=== PATIENT | female | born 1955 | race Caucasian/White ===

== ENCOUNTER 2018-02-20 08:57 | Inpatient (IN) ==
[2018-02-15 16:23] LABS: Appearance,Urine CLEAR; Bilirubin,Urine NEG (NEG); Color,Urine YELLOW; Glucose,Urine (UA) NEGATIVE (NEG); Leukocyte Esterase,Urine NEG /uL (NEG); Protein,Urine NEG (NEG); Specific Gravity,Urine 1.024 (1.000-1.035); Urine Blood NEG mg/dL (<0.03); Urobilinogen,Urine NEG (NEG)
[2018-02-15 19:05] LABS: Basophils # (Auto) 0 K/mcL (0.0-0.3); Basophils % (Auto) 0.7 % (0.0-2.0); Eosinophils # (Auto) 0.3 K/mcL (0.0-0.7); Eosinophils % (Auto) 6.7 % (0.0-7.0); Granulocytes % (Auto) 56.3 % (38.0-78.0); Lymphocytes # (Auto) 1.3 K/mcL (1.5-4.8); Lymphocytes % (Auto) 28.5 % (15.5-49.0); Mean Corpuscular Hemoglobin 30.3 pg (26.0-34.0); Monocytes # (Auto) 0.3 K/mcL (0.1-0.9); Monocytes % (Auto) 7.8 % (1.0-12.0); Platelet Count 199 K/mcL (140-440); RBC 4.79 M/mcL (4.00-5.20); Red Cell Distribution Width 14.7 % (11.5-14.5)
[2018-02-15 19:55] LABS: Blood Urea Nitrogen 11 mg/dl (6-20)
[~2018-02-20 08:57] MED LIST: 0.9 % SODIUM CHLORIDE 9 ML, KETOROLAC 30 MG, ROPIVACAINE HCL/PF 49.5 ML, EPINEPHrine 0.... IJ SCH; ACETAMINOPHEN 500 MG TABLET PO SCH; CELECOXIB 200 MG CAPSULE PO SCH; PREGABALIN 75 MG CAPSULE PO SCH; ceFAZolin 1 GM VIAL IV SCH
[2018-02-20] MEDS ORDERED: MIDAZOLAM 5 MG/5 ML VIAL IV ONE (13:15)
[2018-02-20] MEDS ORDERED: ePHEDrine 50 MG/ML AMPUL IV ONE (13:15)
[2018-02-20] MEDS ORDERED: PROPOFOL 200 MG/20 ML VIAL IV ONE (13:15)
[2018-02-20] MEDS ORDERED: LIDOCAINE HCL/PF 100 MG/5 ML SYRINGE IV ONE (13:15)
[2018-02-20] MEDS ORDERED: TRANEXAMIC ACID 1,000 MG/10 ML VIAL IV ONE (13:15)
[2018-02-20] MEDS ORDERED: DEXAMETHASONE 10 MG/ML VIAL IV ONE (13:15)
[2018-02-20] MEDS ORDERED: ONDANSETRON 4 MG/2 ML VIAL IV ONE (13:15)
[2018-02-20] MEDS ORDERED: GENTAMICIN SULFATE 800 MG/20 ML VIAL IR ONE (14:01)
[2018-02-20] MEDS ORDERED: LACTATED RINGERS 1,000 ML IV SCH (14:30)
[2018-02-20] MEDS ORDERED: IPRATROPIUM/ALBUTEROL 3 ML AMPUL.NEB NEB PRN (14:30)
[2018-02-20] MEDS ORDERED: diphenhydrAMINE 50 MG/ML VIAL IV PRN (14:30)
[2018-02-20] MEDS ORDERED: MEPERIDINE 25 MG/ML SYRINGE IV PRN (14:30)
[2018-02-20] MEDS ORDERED: BENZOCAINE/MENTHOL 1 LOZENGE PO PRN ×2 (14:30→14:38)
[2018-02-20] MEDS ORDERED: FLUMAZENIL 0.1 MG/ML ML IV PRN (14:30)
[2018-02-20] MEDS ORDERED: PROMETHAZINE 25 MG/ML VIAL IV PRN (14:30)
[2018-02-20] MEDS ORDERED: ONDANSETRON 4 MG/2 ML VIAL IV PRN ×2 (14:30→14:38)
[2018-02-20] MEDS ORDERED: HYDROmorphone 2 MG/ML VIAL IV PRN (14:30)
[2018-02-20] MEDS ORDERED: NALOXONE HCL 0.4 MG/ML VIAL IV PRN (14:30)
[2018-02-20] MEDS ORDERED: LACTATED RINGERS 250 ML IV PRN (14:30)
[2018-02-20] MEDS ORDERED: fentaNYL 100 MCG/2 ML VIAL IV PRN (14:30)
[2018-02-20] MEDS ORDERED: POLYETHYLENE GLYCOL 3350 17 GM PACKET PO PRN (14:38)
[2018-02-20] MEDS ORDERED: ACETAMINOPHEN 325 MG TABLET PO PRN (14:38)
[2018-02-20] MEDS ORDERED: BISACODYL 10 MG SUPP.RECT PR PRN (14:38)
[2018-02-20] MEDS ORDERED: FLEETS ADULT ENEMA PR PRN (14:38)
[2018-02-20] MEDS ORDERED: ONDANSETRON ODT 4 MG TABLET SL PRN (14:38)
[2018-02-20] MEDS ORDERED: MAGNESIUM HYDROXIDE 30 ML ORAL.SUSP PO PRN (14:38)
[2018-02-20] MEDS ORDERED: TRANEXAMIC ACID 1,000 MG/10 ML VIAL IV SCH (14:38)
--- NOTE | 2018-02-20 14:38 | Brief Operative Note ---
Date of procedure: 02/20/18 Pre-op diagnosis: right hip djd severe Post-op diagnosis: same Procedure: right александр Grafts/Implants: Yes Anesthesia: GETA Complications: none Surgeon: Jos Mckeon Pomologist: Prince Hayward Estimated blood loss (cc): 20 Specimens Removed/Pathology: none sent Condition: stable Disposition: PACU
[2018-02-20] MEDS ORDERED: GABAPENTIN 300 MG CAPSULE PO PRN (14:42)
[2018-02-20] MEDS ORDERED: DOCUSATE SODIUM 100 MG CAPSULE PO PRN (14:42)
[2018-02-20] MEDS ORDERED: HYDROcodone/APAP 10/325MG TABLET PO PRN (14:42)
[2018-02-20] MEDS ORDERED: ALBUTEROL SULFATE 1 PUFF INHALER INH PRN (15:04)
[2018-02-20] MEDS ORDERED: TRIAMCINOLONE ACETONIDE 40 MG/ML VIAL INTRAARTIC ONE (15:08)
[2018-02-20] MEDS ORDERED: BUPIVACAINE PF 0.5% 30 ML VIAL IJ ONE (15:08)
[2018-02-20] MEDS ORDERED: DEXAMETHASONE 10 MG/ML VIAL IM ONE (15:12)
--- NOTE | 2018-02-20 15:26 | XRay Report ---
CLINICAL INFORMATION: Right hip arthroplasty COMPARISON: None. FINDINGS: Right total hip prostheses anatomically aligned. Older left hip prostheses is also anatomically aligned. No osseous abnormality. IMPRESSION: Negative Interpreted and Authenticated by: Elias Vogt 02/20/18
[2018-02-20] MEDS: 0.45 % SODIUM CHLORIDE 1,000 ML IV SCH ×2 (15:48→20:03)
[2018-02-20] MEDS: HYDROmorphone 2 MG/ML VIAL IV PRN ×3 (15:59→21:37)
--- NOTE | 2018-02-20 16:50 | XRay Report ---
CLINICAL INFORMATION: Right total hip prostheses COMPARISON: None. FINDINGS: Right total hip prostheses is in anatomic alignment. Older left hip prostheses is also in anatomic alignment. No osseous abnormality. Periarticular soft tissue swelling seen as expected IMPRESSION: Negative Interpreted and Authenticated by: Elias Vogt 02/20/18
[2018-02-20] MEDS: KETOROLAC 15 MG/ML VIAL IV PRN ×2 (17:12→23:12)
[2018-02-20] MEDS: HYDROcodone/APAP 10/325MG TABLET PO PRN ×2 (18:05→22:29)
[2018-02-20] MEDS: ceFAZolin 1 GM VIAL IV SCH (19:30)
[2018-02-20] MEDS ORDERED: TEMAZEPAM 15 MG CAPSULE PO PRN (21:00)
[2018-02-20] MEDS ORDERED: SENNOSIDES 1 TABLET PO SCH (21:00)
[2018-02-20] MEDS: ASPIRIN 325 MG ENTERIC COATED TABLET PO SCH (21:09)
[2018-02-20] MEDS: DOCUSATE SODIUM 100 MG CAPSULE PO SCH (21:09)
[2018-02-20] MEDS: 0.9 % SODIUM CHLORIDE 10 ML SYRINGE IV SCH (21:09)
[2018-02-21] MEDS: HYDROmorphone 2 MG/ML VIAL IV PRN ×3 (00:02→04:27)
[2018-02-21] MEDS: 0.45 % SODIUM CHLORIDE 1,000 ML IV SCH ×2 (00:27→11:41)
[2018-02-21] MEDS: HYDROcodone/APAP 10/325MG TABLET PO PRN ×4 (02:02→13:57)
[2018-02-21] MEDS: ceFAZolin 1 GM VIAL IV SCH (04:27)
[2018-02-21] MEDS: 0.9 % SODIUM CHLORIDE 10 ML SYRINGE IV SCH (04:28)
[2018-02-21] MEDS ORDERED: OMEPRAZOLE 20 MG CAPSULE PO SCH (07:30)
[2018-02-21] MEDS: KETOROLAC 15 MG/ML VIAL IV PRN (07:41)
--- NOTE | 2018-02-21 07:57 | Orthopedic Progress Note ---
Subjective Patient information: Note initiated : 02/21/18 at 7:56 am Service Date, if different from initiated Date: [] Patient: Tigist Torres 62 y/o F admitted on 02/20/18 for Right Total Hip Arthroplasty and Knee Injection. Chief Complaint: [Pt is stable this morning on post operative day 2 without any significant concerns or complaints. Patients vital signs have remained stable. Patients dressing is dry and is grossly instact from a neurovascular and motor standpoint. Patients 10 point ROS is otherwise negative. ] Objective Vital signs: Vital Signs Temp Pulse Resp BP BP Pulse Ox 02/21/18 07:09 97.7 F 67 18 113/79 94 02/21/18 06:00 97 02/21/18 04:00 97.9 F 69 18 99/60 93 02/21/18 00:00 97 02/20/18 23:15 98.0 F 73 18 100/58 92 02/20/18 22:00 93 02/20/18 20:00 96 02/20/18 19:37 98.7 F 80 18 125/73 96 02/20/18 18:00 96 02/20/18 17:09 107/62 96 02/20/18 16:39 114/71 97 02/20/18 16:38 97 02/20/18 16:24 122/73 96 02/20/18 16:10 101/57 96 02/20/18 15:54 129/71 97 02/20/18 15:39 115/69 98 02/20/18 15:29 97.5 F 67 13 125/56 97 02/20/18 15:13 97.2 F 67 16 133/67 100 02/20/18 15:08 63 16 133/68 100 02/20/18 15:03 75 18 118/82 93 02/20/18 14:58 97.3 F 96 H 16 128/64 100 02/20/18 14:48 83 14 117/83 99 02/20/18 14:43 97.6 F 75 15 133/63 99 02/20/18 14:38 98 02/20/18 08:57 98.4 F 68 16 118/77 95 Intake and Output 02/20/18 02/21/18 02/21/18 21:59 05:59 13:59 Intake Total 2960 / 2960 800 / 800 Output Total 250 / 250 1726 / 1726 Balance 2710 / 2710 -926 / -926 Intake: IV 2600 / 2600 Lactated Ringers 1,000 ml @ 20 2600 / 2600 mls/hr IV .Q24H [facility] Rx#: [id number] Oral 360 / 360 800 / 800 Output: Void Amount 1725 / 1725 # of times incontinent of urine 1 / Estimated Blood Loss 250 / 250 Other: Meal cheese stick and chocolate ice cream Percent of Meal Consumed 100% Feeding Ability Independent Stool Size Small Stool Color Brown Stool Consistency Soft # Voids 1 # Bowel Movements 1 Weight 245 lb 8 oz Intake & Output: Intake & Output 02/20/18 02/21/18 02/21/18 21:59 05:59 13:59 Intake Total 2960 / 2960 800 / 800 Output Total 250 / 250 1726 / 1726 Balance 2710 / 2710 -926 / -926 Weight 245 lb 8 oz Intake: IV 2600 / 2600 Lactated Ringers 1,000 ml @ 20 2600 / 2600 mls/hr IV .Q24H [facility] Rx#: [id number] Oral 360 / 360 800 / 800 Output: Void Amount 1725 / 1725 # of times incontinent of urine 1 / Estimated Blood Loss 250 / 250 Other: Meal cheese stick and chocolate ice cream Percent of Meal Consumed 100% Feeding Ability Independent Stool Size Small Stool Color Brown Stool Consistency Soft # Voids 1 # Bowel Movements 1 Incision: Yes healing Incision clean and dry: Yes Dressing: Yes clean Weight bearing status: full Neurological exam IM: Yes motor sensory intact, Yes neurovascular intact Extremities exam IM: Yes Foot pink and warm, Yes neurovascular intact - Labs CBC & BMP: 02/21/18 04:15 02/15/18 14:57 Labs: Orthopedic Labs 02/15/18 14:57 PT 13.2 INR 1.0 APTT 29 02/21/18 02/15/18 04:15 14:57 Hgb 14.5 Hct 36.4 44.0 Assessment and Plan (1) Hx of total hip arthroplasty The patient has been educated regarding dressing care, Physical Therapy recommendations, home exercises, restrictions, and follow up appointments. The patient has had all necessary DME prescribed. The patient has remained relatively stable during their hospital course. Status: Acute
--- NOTE | 2018-02-21 08:01 | Discharge Summary ---
Ortho Discharge - [facility] - Patient Instructions Diet: Regular Diet Activity: activity as tolerated, weight bearing as tolerated Total Hip Protocol: Follow activity instructions as provided by Physical Therapy. Dressing Care: May shower in 2 days, Aquacel Ag - leave on for 5 days - Problem Maintenance (1) Hx of total hip arthroplasty Status: Acute - Follow Up Plan Follow Up Appointments: Prince Hayward PA-C [Physician Genetics Teacher] - 03/07/18 1:10 pm Disposition: Home, Self-Care Prognosis: Good Rehab Potential: Good I certify that the patient requires SNF services: No Overall status at discharge: patient is progressing back to baseline - Orders For Discharge Prescriptions: Aspirin [Ecotrin] 325 mg PO BID #60 tab.ec Docusate Sodium [Colace] 100 mg PO BID #60 cap HYDROcodone/APAP 10/325MG [[place] 10-325Mg] 1 - 2 tab PO Q4HP PRN #60 tab PRN Reason: Pain Level 3-6 oxyCODONE HCL/ACETAMINOPHEN [Percocet 7.5-325 mg Tablet] 1 each PO Q4-6HP PRN # 60 tab PRN Reason: Pain
--- NOTE | 2018-02-21 08:02 | Operative Note ---
DATE OF OPERATION: 02/20/2018 PREOPERATIVE DIAGNOSIS: Right hip degenerative arthritis, severe. POSTOPERATIVE DIAGNOSIS: Right hip degenerative arthritis, severe. PROCEDURE: Right total hip arthroplasty. SURGEON: Jos Mckeon MD GRAIN UNLOADER MACHINE: Prince Hayward PA-C ANESTHESIA: General LMA anesthesia. COMPLICATIONS: None. ESTIMATED BLOOD LOSS: Up to 100 mL. No blood products given. No complications. IMPLANTS: Cementless cup matching her opposite side and a +4 neck length. DESCRIPTION OF PROCEDURE: The patient was brought to the operating room and put to sleep with general LMA anesthesia. Once asleep, the patient had the right leg sterilely prepped and draped in the usual sterile fashion. A timeout was performed. We confirmed this as the operative side. We made a superior approach to the hip and dislocated the hip superiorly. We made our neck cut at 32 mm below the center of hip rotation. We then reamed up the acetabulum, removing remnants of the labrum and once reamed up for a 52 cup, a 52 cup with a 35 mm screw was placed. Dual mobility liner was placed. We then prepared the femur. This was broached up to the size 4 stem which seemed to fit very nicely. We used a +4 neck length and this seemed to match the patient's leg length using x-ray. We then placed the final implant size 4 stem, +4 neck length with a dual mobility ball. We irrigated thoroughly, repaired the capsule after reducing the hip and checking its stability. It was very stable throughout the range of motion to 90 degrees of flexion, internal rotation up to 90 degrees. The capsule was closed, we irrigated thoroughly and then closed the fascial layer with #1 Stratafix, closed the skin with #1 Stratafix and librado superficially. The patient tolerated this well. There was no complication. [email or web address] Job ID: [id number] Doc ID: [id number] Jos Mckeon MD
[2018-02-21] MEDS ORDERED: KETOROLAC TROMETHAMINE OU SCH (09:00)
[2018-02-21] MEDS ORDERED: ASPIRIN 325 MG ENTERIC COATED TABLET PO SCH (09:00)
[2018-02-21] MEDS ORDERED: MAGNESIUM OXIDE 400 MG TABLET PO SCH (09:00)
[2018-02-21] MEDS ORDERED: CITALOPRAM 20 MG TABLET PO SCH (09:00)
[2018-02-21] MEDS ORDERED: MELOXICAM 15 MG PO SCH (09:00)
[2018-02-21] MEDS ORDERED: SPIRONOLACTONE 25 MG TABLET PO SCH (09:00)
[2018-02-21] MEDS ORDERED: MULTIVIT,THER IRON,CA,FA & MIN 1 TABLET PO SCH (09:00)
[2018-02-21] MEDS: ASPIRIN 325 MG ENTERIC COATED TABLET PO SCH (09:09)
[2018-02-21] MEDS: DOCUSATE SODIUM 100 MG CAPSULE PO SCH (09:09)
[2018-02-21] MEDS ORDERED: oxyCODONE/APAP 5/325MG TABLET PO PRN (12:23)
[2018-02-21] MEDS ORDERED: oxyCODONE HCL 5 MG TABLET PO PRN (12:25)
== END 2018-02-21 14:39 | disposition home or self-care (01) | DRG 470 ==
LOC: MEDSUR 08:57
PROVIDERS: ADMIT Orthopaedic Surgery; ATTEND Orthopaedic Surgery
PROC: STINJOR (2018-02-20 13:10)